=== PATIENT | female | born 1935 | race Caucasian/White ===

== ENCOUNTER → 2025-03-17 08:51 | Outpatient (REF) | payer MEDICARE, OTHER, SELFPAY ==
[2025-03-17 12:39] LABS: % Basophils 0.7 % (0-2); % Eosinophils 0.4 % (0-6); % Immature Granulocytes 0.8 % (0-0.5); % Lymphocytes 17.9 % (20.5-51.1); % Monocytes 7.9 % (1.7-9.3); % Neutrophils 72.3 % (42.2-75.2); Absolute Basophils 0.1 10^3/uL (0-0.2); Absolute Immature Granulocytes 0.1 10^3/uL (0-0.05); Absolute Lymphocytes 1.7 10^3/uL (1.2-3.4); Absolute Monocytes 0.8 10^3/uL (0.1-0.6); Absolute Neutrophils 6.9 10^3/uL (1.4-6.5); Hematocrit 37.8 % (37.0-47.0); Hemoglobin 12.6 g/dL (12.0-16.0); Mean Corp Hgb Conc. 33.3 g/dL (33.0-37.0); Mean Corpuscular Hgb 29.7 pg (27.0-31.0); Mean Corpuscular Volume 89.2 fL (81.0-99.0); Mean Platelet Volume 11.5 fL (7.4-10.4); Nucleated Red Blood Cells % 0 %; Platelet Count 259 10^3/uL (130-400); Red Blood Cell Count 4.24 10^6/uL (4.20-5.40); Red Cell Dist. Width 13.5 % (11.5-14.5); White Blood Cell Count 9.6 10^3/uL (4.8-10.8)
[2025-03-17 13:02] LABS: ALT (SGPT) 19 U/L (0-35); AST (SGOT) 26 U/L (14-36); Albumin 4.7 g/dl (3.5-5.0); Alkaline Phosphatase 72 U/L (38-126); Blood Urea Nitrogen 23 mg/dl (7-17); Calcium 10.1 mg/dl (8.4-10.2); Carbon Dioxide 25 mmol/L (22-30); Chloride 102 mmol/L (98-107); Glucose 86 mg/dl (70-99); HDL Cholesterol 60 mg/dl; Potassium 4.9 mmol/L (3.5-5.1); Sodium 137 mmol/L (135-145); Total Bilirubin 0.9 mg/dl (0.2-1.3); Total Cholesterol 213 mg/dl (50-199); Total Protein 7.6 g/dl (6.3-8.2); eGFR 43.54
[2025-03-17 13:11] LABS: LDL Cholesterol, Calculated 119 mg/dl; Triglyceride 171 mg/dl (10-149); Very Low Density Lipoprotein 34 mg/dl (0-30)
[2025-03-17 13:14] LABS: Vitamin D, 25-OH*** 46.2 ng/mL (30-80)
[2025-03-17 13:27] LABS: TSH 3.36 uIU/ml (0.47-4.68)
== END ==
LOC: HWLAB 08:51
PROVIDERS: ATTENDING PHYSICIAN Internal Medicine
DX: I10 Essential (primary) hypertension (principal); K21.9 Gastro-esophageal reflux disease without esophagitis; E87.1 Hypo-osmolality and hyponatremia; Z13.220 Encounter for screening for lipoid disorders; E03.9 Hypothyroidism, unspecified; E55.9 Vitamin D deficiency, unspecified
CPT/HCPCS: 36415; 80053; 80061; 82306; 84443; 85025